=== PATIENT | female | born 1935 | race Caucasian/White ===

== ENCOUNTER 2019-08-01 14:08 | Emergency (ER) | payer MEDICARE ==
[~2019-08-01] VITALS: Ht 157.5 cm; Wt 68.1 kg
[~2019-08-01 14:08] MED LIST: ACID1TAB7 PO; ATOR20TA37 PO; INSU100I13 SQ-INSULIN; LEVO500T47 PO; LISI-170 PO
--- NOTE | 2019-08-01 14:08 | NUR ---
PATIENT BIB EMS [facility] FOR ALTERED STARING AT 0700 TODAY PER FAMILY ORIENTED TO SELF. DAUGHTER THINKS IT IS A UTI. PATIENT IS ORIENTED TO PERSON, ALTERED AND PULLING AT ALL HER MONITORS. DAUGHTER WOULD NOT LEAVE ROOM, NOTIFIED HER THAT WE WE ARE TESTING FOR COVID.PATIENT CLEANED UP AND PUT IN A GOWN ON CONT CARDIAC MONITOE, SPO2 BP Q 30 MIN. PATIENT SPO2 DOWN TO 87%, PT PUT ON 2 l NC NOT AT 94%. PROVIDER NOTIFIED.
[2019-08-01] MEDS ORDERED: SODIUM CHLORIDE 0.9% 1,000ML IVBOLUS ONE (14:30)
[2019-08-01] MEDS ORDERED: SODIUM CHLORIDE FLUSH 10ML SYR IVF ONE (14:30)
[2019-08-01 15:01] LABS: BASOPHILS # (AUTO) 0.03 x10^3/uL (0-0.1); BASOPHILS % (AUTO) 0 % (0-1); EOSINOPHILS # (AUTO) 0.01 x10^3/uL (0-0.4); EOSINOPHILS % (AUTO) 0 % (1-7); LYMPHOCYTES # (AUTO) 2.08 x10^3/uL (1-3.4); LYMPHOCYTES % (AUTO) 13 % (22-44); MD NO; MEAN CORPUSCULAR HEMOGLOBIN 28.4 pg (27.0-34.8); MEAN CORPUSCULAR HGB CONC 32.4 g/dL (32.4-35.8); MEAN CORPUSCULAR VOLUME 87.6 fL (80-100); MEAN PLATELET VOLUME 9.4 fL (7.4-10.4); MONOCYTES # (AUTO) 0.68 x10^3/uL (0.2-0.8); MONOCYTES % (AUTO) 4 % (2-9); NEUTROPHILS # (AUTO) 13.79 x10^3/uL (1.8-6.8); NEUTROPHILS % (AUTO) 83 % (42-75); PLATELET COUNT 372 x10^3/uL (130-400); RED BLOOD COUNT 5.69 x10^6/uL (3.82-5.3); RED CELL DISTRIBUTION WIDTH 14.6 % (9.6-15.2)
[2019-08-01 15:14] LABS: ALANINE AMINOTRANSFERASE 26 U/L (12-78); ALBUMIN 3.5 g/dL (3.4-5.0); ANION GAP 8 mmol/L (5-15); CALCIUM 8.9 mg/dL (8.5-10.1); CHLORIDE 105 mmol/L (98-107); CREATININE 1.02 mg/dL (0.55-1.02)
[2019-08-01] MEDS: PLEASE ENTER HEIGHT AND WEIGHT MC SCH ×2 (15:18→15:21)
[2019-08-01 15:25] LABS: ALKALINE PHOSPHATASE 94 U/L (45-117); BILIRUBIN,TOTAL 0.4 mg/dL (0.2-1.0); TOTAL PROTEIN 8.2 g/dL (6.4-8.2)
[2019-08-01] MEDS ORDERED: METF500T17 PO (15:28)
[2019-08-01 15:33] LABS: MICROSCOPIC INDICATED
[2019-08-01] MEDS ORDERED: CEFTRIAXONE PMX 1GM/50ML 50 ML ONE (15:55)
[2019-08-01] MEDS ORDERED: CEFTRIAXONE PMX 1GM/50ML 50 ML IV ONE (16:00)
[2019-08-01] MEDS ORDERED: DOXYCYCLINE 100 MG in DEXTROSE 5% 250 ML IV SCH (16:30)
--- NOTE | 2019-08-01 16:51 | NUR ---
PATIENT'S DAUGHTER REFUSES TO KEEP HER MOTHER IN THE HOSPITAL STATES THAT SHE HAS O2 AT HOME AND REPORTS THAT IF HER MOTHER STAYS IN THE HOSPITAL THAT SHE WILL GET COVID ANDPASS AWAY IN THE HOSPITAL SO SHE WANT TO TAKE HER HOME.
--- NOTE | 2019-08-01 16:54 | NUR ---
PATIENT TO CT, WARM BLANKET GIVEN
[2019-08-01 19:34] VITALS: BP 161/86
== END 2019-08-01 19:37 | disposition home or self-care (01) ==
LOC: ED 14:38
DX: Z03.818 Encounter for observation for suspected exposure to other biological agents ruled out (principal); J01.20 Acute ethmoidal sinusitis, unspecified; J01.00 Acute maxillary sinusitis, unspecified; R53.1 Weakness; R41.82 Altered mental status, unspecified; R51 Headache; R94.31 Abnormal electrocardiogram [ECG] [EKG]; E11.9 Type 2 diabetes mellitus without complications
CPT/HCPCS: 36415; 70450; 71045; 80053; 81001; 83605; 84145; 84443; 85025; 87040; 93005; 96365; 96366; 96368; 99285; J0696; J7030; J7060; U0001

== ENCOUNTER 2020-11-07 14:40 | Emergency (ER) | payer MEDICARE ==
[~2020-11-07] VITALS: Ht 157.5 cm; Wt 60.0 kg
[~2020-11-07 14:40] MED LIST changes: +METF500T17 PO
--- NOTE | 2020-11-07 15:30 | NUR ---
IS AT THE BEDSIDE FOR CONSULT
--- NOTE | 2020-11-07 15:58 | NUR ---
PT TO CT W TECH
[2020-11-07 16:48] LABS: BASOPHILS % (AUTO) 0 % (0-1); EOSINOPHILS % (AUTO) 0 % (1-7); LYMPHOCYTES % (AUTO) 10 % (22-44); MEAN CORPUSCULAR HEMOGLOBIN 28.8 pg (27.0-34.8); MEAN CORPUSCULAR HGB CONC 33.1 g/dL (32.4-35.8); MEAN PLATELET VOLUME 7.8 fL (7.4-10.4); MONOCYTES % (AUTO) 10 % (2-9); NEUTROPHILS % (AUTO) 80 % (42-75); PLATELET COUNT 314 x10^3/uL (130-400); RED BLOOD COUNT 5.28 x10^6/uL (3.82-5.3); RED CELL DISTRIBUTION WIDTH 15.2 % (9.6-15.2)
[2020-11-07 17:00] LABS: ALANINE AMINOTRANSFERASE 18 U/L (12-78); ALBUMIN 3.1 g/dL (3.4-5.0); ANION GAP 8 mmol/L (5-15); CALCIUM 9.2 mg/dL (8.5-10.1); CHLORIDE 102 mmol/L (98-107); CREATININE 1.03 mg/dL (0.55-1.02)
[2020-11-07 17:02] LABS: ALKALINE PHOSPHATASE 96 U/L (45-117); BILIRUBIN,TOTAL 0.3 mg/dL (0.2-1.0); TOTAL PROTEIN 7.6 g/dL (6.4-8.2)
--- NOTE | 2020-11-07 17:12 | NUR ---
MAURICIO (RN) WAS PROVIDER OF CATH UA. PT TOLERATED WELL.
[2020-11-07 17:37] LABS: MICROSCOPIC AUTO
--- NOTE | 2020-11-07 17:55 | NUR ---
PHLEBOTOMY IS AT THE BEDSIDE FOR BLOOD CULTURES X2.
[2020-11-07] MEDS ORDERED: DOXYCYCLINE 100 MG in DEXTROSE 5% 250 ML IV SCH (18:00)
[2020-11-07] MEDS ORDERED: CEFTRIAXONE 1,000 MG in DEXTROSE 5% 50 ML IVPB ONE (18:00)
--- NOTE | 2020-11-07 19:00 | NUR ---
REPORT RC'VD FROM SANA NORTON AND CARE OF PT ASSUMED. ERP WAS IN TO SEE PT. PT/DAUGHTER REFUSING ADMISSION, SO PT WILL BE DISCHARGED.
--- NOTE | 2020-11-07 19:25 | NUR ---
BENNIE PRATER AT FOR EKG.
[2020-11-07 19:26] VITALS: BP 187/74
--- NOTE | 2020-11-07 20:19 | NUR ---
D/C INSTRUCTIONS RV'WD WITH PT AND DAUGHTER. RX GIVEN X2. INSTRUCTED DAUGHTER TO BRING PT BACK TO ED IF SHE CHANGES HER MIND AND WANTS TO STAY IN THE HOSPITAL, OR FOR ANY WORSENING OR CONCERNING SYMPTOMS. DAUGHTER STATES SHE HAS PULSE OX & O2 AT HOME FOR PT AND WILL KEEP PT ON O2 VIA NC. ASSISTED PT OUT OF ED VIA WC.
== END 2020-11-07 20:20 | disposition home or self-care (01) ==
LOC: ED 18:40
DX: R41.82 Altered mental status, unspecified (principal); R11.2 Nausea with vomiting, unspecified; R55 Syncope and collapse; N30.00 Acute cystitis without hematuria; J18.9 Pneumonia, unspecified organism; E11.9 Type 2 diabetes mellitus without complications; Z20.822 Contact with and (suspected) exposure to COVID-19
CPT/HCPCS: 36415; 70450; 71045; 80053; 81001; 83605; 84145; 85025; 87040; 87077; 87086; 87186; 93005; 96365; 96375; 99285; J0696; J7060; U0003; U0005